=== PATIENT | female | born 1995 | race Caucasian/White ===

== ENCOUNTER 2025-10-01 23:47 | Inpatient (IN) | payer BC ==
[2025-10-01 23:59] VITALS: BMI 24.7
[2025-10-02] MEDS ORDERED: Carboprost 250 MCG/ML AMP IM PRN (00:27)
[2025-10-02] MEDS ORDERED: Diphenoxylate HCl/Atropine Tablet PO PRN ×2 (00:27)
[2025-10-02] MEDS ORDERED: Ondansetron PF 4 MG/2 ML Vial IVP PRN ×2 (00:27→14:03)
[2025-10-02] MEDS ORDERED: Lidocaine 1% (PF) 30 ML VIAL SC PRN (00:27)
[2025-10-02] MEDS ORDERED: Acetaminophen 500 MG TAB PO PRN (00:27)
[2025-10-02] MEDS ORDERED: Methylergonovine 0.2 MG/ML VIAL IM PRN (00:27)
[2025-10-02] MEDS ORDERED: hydrALAZINE 20 MG/ML VIAL SLOW IVP PRN ×2 (00:27→14:03)
[2025-10-02 01:09] LABS: Hematocrit 36.5 % (34.9-44.5); Hemoglobin 12.7 g/dL (12.0-15.5); Mean Corpuscular Hemoglobin 31.9 pg (27.0-33.0); Mean Corpuscular Volume 91.7 fL (81.6-98.3); Platelet Count 208 10x3/uL (150-450); Red Blood Cell (RBC) Count 3.98 10x6/uL (3.90-5.03); White Blood Cell (WBC) Count 11.39 10x3/uL (3.5-10.5)
[2025-10-02 01:42] LABS: Syphilis Antibody Index 0.10 S/CO (<1.00 Non-Reactive)
[2025-10-02 01:43] LABS: Hep B Surf Ag - L&D Non-Reactive S/CO (NonReactive)
[2025-10-02] MEDS ORDERED: Acetaminophen 325 MG TAB PO PRN (07:04)
[2025-10-02] MEDS ORDERED: diphenhydrAMINE 50 MG/ML VIAL IVP PRN (07:04)
[2025-10-02] MEDS ORDERED: Communication Order-Pharmacy FS SCH (07:15)
[2025-10-02] MEDS: fentaNYL 2 mcg/Ropivacaine 0.2% Epidural 100 ML CADD EPIDURAL SCH (07:29)
[2025-10-02] MEDS: Ondansetron PF 4 MG/2 ML Vial IVP PRN (11:25)
[2025-10-02] MEDS: Oxytocin 30 units/NS 500 ML 500 ML IV SCH (12:02)
[2025-10-02] MEDS ORDERED: Milk Of Magnesia 30 ML UDCUP PO PRN (14:03)
[2025-10-02] MEDS ORDERED: diphenhydrAMINE 25 MG CAP PO PRN (14:03)
[2025-10-02] MEDS ORDERED: Bisacodyl 10 MG SUPP PR PRN (14:03)
[2025-10-02] MEDS ORDERED: HYDROcodone/Acetaminophen 5/325 mg Tablet PO PRN ×2 (14:03)
[2025-10-02] MEDS ORDERED: Oxytocin 30 units/NS 500 ML 500 ML IV SCH (14:03)
[2025-10-02] MEDS ORDERED: Preparation H Ointment 28 GM TUBE PR PRN (14:03)
[2025-10-02] MEDS ORDERED: Lanolin Ointment 7 GM TUBE TOP PRN (14:03)
[2025-10-02] MEDS: fentaNYL/Ropivacaine Epidural 100 ML ONE (22:03)
[2025-10-02] MEDS: Ferrous Sulfate 325 MG TAB PO SCH (22:03)
[2025-10-02] MEDS: Ibuprofen 800 MG TAB PO SCH (22:03)
[2025-10-03] MEDS: Benzocaine-Menthol 82.5 ML CAN TOP PRN (08:30)
[2025-10-04 08:33] VITALS: BP 139/88; TEMP 98
[2025-10-04] MEDS: Benzonatate 100 MG CAP PO PRN (09:37)
== END 2025-10-04 16:00 | disposition home or self-care (01) | DRG 807 ==
LOC: CSHLD/OP 23:47 → OBSVTOIN 10-02 01:01 → CSHLD 10-02 01:01 → CSHPP 10-02 14:57
PROVIDERS: ADMIT Obstetrics & Gynecology; ATTEND Obstetrics & Gynecology
PROC: 10E0XZZ Delivery of Products of Conception, External Approach (ICD-10-PCS; principal; 2025-10-02)
PROC: 0UQMXZZ Repair Vulva, External Approach (ICD-10-PCS; 2025-10-02)
DX: O70.0 First degree perineal laceration during delivery (principal); Z37.0 Single live birth; Z3A.38 38 weeks gestation of pregnancy
CPT/HCPCS: 36415; 51702; 85027; 86780; 86850; 86900; 86901; 87340; 99285; J2405; J2590; J7120